=== PATIENT | female | born 1955 | race Caucasian/White ===

== ENCOUNTER → 2020-08-22 | Outpatient (CLI) | payer MEDICARE, OTHER | LOC: EXRD 09:07 | DX: M15.4 Erosive (osteo)arthritis (principal); M25.50 Pain in unspecified joint; M25.559 Pain in unspecified hip; M19.042 Primary osteoarthritis, left hand; M19.041 Primary osteoarthritis, right hand | CPT/HCPCS: 73130; 73502; 73630 ==

== ENCOUNTER → 2021-01-18 | Outpatient (CLI) | payer MEDICARE, OTHER ==
[~2021-01-18] VITALS: Ht 157.5 cm; Wt 78.5 kg
== END ==
LOC: OPSV 12-14 12:00
DX: M81.0 Age-related osteoporosis without current pathological fracture (principal)
CPT/HCPCS: 96372

== ENCOUNTER 2021-08-01 06:38 | Observation (INO) | payer MEDICARE, OTHER ==
[~2021-08-01] VITALS: Ht 160 cm; Wt 79.4 kg
[2021-08-01 07:11] LABS: HEMOGLOBIN 12.6 gm/dl (12.3-15.3); RED BLOOD COUNT 4.31 M/UL (4.00-5.10)
[2021-08-01 07:55] LABS: BUN/CREATININE RATIO 22 (0-10)
[2021-08-01] MEDS ORDERED: FLONASE 0.05% N16 GM (13:10)
[2021-08-01] MEDS ORDERED: PROTONIX 40 MG40 M1 PO (13:10)
[2021-08-01] MEDS ORDERED: MISOPROSTOL100 MCG PO (13:10)
[2021-08-01] MEDS ORDERED: LEVOTHYROXINE50 MCG PO (13:11)
[2021-08-01] MEDS ORDERED: LEVETIRACETAM500 MG PO (13:11)
[2021-08-01] MEDS ORDERED: NITROGLYCERIN0.4 MG SL (13:11)
[2021-08-01] MEDS ORDERED: LOSARTAN POTAS100 MG PO (13:11)
[2021-08-01] MEDS ORDERED: TOPIRAMATE25 MG PO ×2 (13:12→13:13)
[2021-08-01] MEDS ORDERED: CARVEDILOL12.5 MG PO (13:13)
[2021-08-01] MEDS ORDERED: ATORVASTATIN CA40 MG PO (13:13)
[2021-08-01] MEDS ORDERED: ONDANSETRON HCL4 MG PO (13:14)
[2021-08-01] MEDS ORDERED: PREDNISONE5 MG PO (13:14)
[2021-08-01] MEDS ORDERED: CYCLOBENZAPRINE10 MG PO (13:14)
[2021-08-01] MEDS ORDERED: PROLIA INJ60 MG/1 ML SQ (13:15)
[2021-08-01] MEDS ORDERED: ASPIRIN EC81 MG PO (13:15)
[2021-08-01] MEDS ORDERED: VITAMIN D350 MCG PO (13:16)
[2021-08-01] MEDS ORDERED: FISH OIL 1,0001 EACH PO (13:16)
[2021-08-01] MEDS ORDERED: ASCORBIC ACID500 MG PO (13:16)
[2021-08-01] MEDS ORDERED: COQ-10100 MG PO (13:17)
[2021-08-01] MEDS ORDERED: CALCIUM CARBON600 MG PO (13:17)
[2021-08-02 06:03] LABS: HEMOGLOBIN 12.3 gm/dl (12.3-15.3); RED BLOOD COUNT 4.25 M/UL (4.00-5.10)
[2021-08-02 06:24] LABS: BUN/CREATININE RATIO 17 (0-10)
[2021-08-02 06:31] LABS: WHITE BLOOD COUNT 8.5 K/UL (4.5-11.0)
[2021-08-02] MEDS ORDERED: TAMIFLU 75 MG C75 MG PO (14:10)
== END 2021-08-02 16:55 | disposition home or self-care (01) ==
LOC: ER1 06:38 → CDU 11:42 → MED SURG 4 18:08
PROVIDERS: Nurse Practitioner; Physician Assistant Medical; ADMIT Internal Medicine
DX: U07.1 COVID-19 (principal); J10.1 Influenza due to other identified influenza virus with other respiratory manifestations; A08.39 Other viral enteritis; I25.10 Atherosclerotic heart disease of native coronary artery without angina pectoris; K21.9 Gastro-esophageal reflux disease without esophagitis; K27.9 Peptic ulcer, site unspecified, unspecified as acute or chronic, without hemorrhage or perforation; E03.9 Hypothyroidism, unspecified; I10 Essential (primary) hypertension; E78.5 Hyperlipidemia, unspecified; G40.909 Epilepsy, unspecified, not intractable, without status epilepticus; R07.89 Other chest pain; I72.8 Aneurysm of other specified arteries; R74.01 Elevation of levels of liver transaminase levels; E66.9 Obesity, unspecified; Z68.31 Body mass index [BMI] 31.0-31.9, adult; Z95.5 Presence of coronary angioplasty implant and graft; Z79.899 Other long term (current) drug therapy; Z88.5 Allergy status to narcotic agent; Z90.49 Acquired absence of other specified parts of digestive tract; Z90.710 Acquired absence of both cervix and uterus; Z82.49 Family history of ischemic heart disease and other diseases of the circulatory system
CPT/HCPCS: ECHO; 0240U; 36415; 71045; 80048; 80053; 81001; 82550; 82553; 83735; 84484; 85025; 85027; 93005; 93306; 99285; G0378

== ENCOUNTER → 2021-08-15 | Outpatient (CLI) | payer MEDICARE, OTHER ==
[~2021-08-15] VITALS: Ht 157.5 cm; Wt 78.5 kg
[~2021-08-15] MED LIST: ASCORBIC ACID500 MG PO; ASPIRIN EC81 MG PO; ATORVASTATIN CA40 MG PO; CALCIUM CARBON600 MG PO; CARVEDILOL12.5 MG PO; COQ-10100 MG PO; CYCLOBENZAPRINE10 MG PO; FISH OIL 1,0001 EACH PO; FLONASE 0.05% N16 GM; LEVETIRACETAM500 MG PO; LEVOTHYROXINE50 MCG PO; LOSARTAN POTAS100 MG PO; MISOPROSTOL100 MCG PO; NITROGLYCERIN0.4 MG SL; ONDANSETRON HCL4 MG PO; PREDNISONE5 MG PO; PROLIA INJ60 MG/1 ML SQ; PROTONIX 40 MG40 M1 PO; TAMIFLU 75 MG C75 MG PO; TOPIRAMATE25 MG PO; VITAMIN D350 MCG PO
== END ==
LOC: OPSV 08-01 14:00
DX: M81.0 Age-related osteoporosis without current pathological fracture (principal)
CPT/HCPCS: 96372

== ENCOUNTER → 2021-09-26 | Outpatient (CLI) | payer MEDICARE, OTHER | LOC: CT 12:30 | DX: R10.30 Lower abdominal pain, unspecified (principal); K76.0 Fatty (change of) liver, not elsewhere classified | CPT/HCPCS: 36415; 82565; 84520; Q9967 ==

== ENCOUNTER → 2021-10-30 | Day surgery (SDC) | payer MEDICARE, OTHER ==
[~2021-10-30] MED LIST changes: +FOLIC ACID1 MG PO; +METHOTREXATE T2.5 MG PO
== END | disposition home or self-care (01) ==
LOC: OR 07:27
DX: K50.111 Crohn's disease of large intestine with rectal bleeding (principal); K57.30 Diverticulosis of large intestine without perforation or abscess without bleeding; K64.2 Third degree hemorrhoids; K64.4 Residual hemorrhoidal skin tags; I10 Essential (primary) hypertension; E03.9 Hypothyroidism, unspecified; M19.90 Unspecified osteoarthritis, unspecified site; E78.5 Hyperlipidemia, unspecified; E66.3 Overweight; Z68.29 Body mass index [BMI] 29.0-29.9, adult; Z79.82 Long term (current) use of aspirin; Z79.899 Other long term (current) drug therapy
CPT/HCPCS: 36415; 80076; J2001; J2704; J7040

== ENCOUNTER → 2022-02-13 | Outpatient (CLI) | payer MEDICARE, OTHER | LOC: EMI 10:45 | DX: M54.50 Low back pain, unspecified (principal); M48.07 Spinal stenosis, lumbosacral region | CPT/HCPCS: 72148 ==